=== PATIENT | male | born 1975 | race Caucasian/White ===

== ENCOUNTER 2016-12-16 17:08 | Emergency (ER) | payer BC ==
--- NOTE | ~2016-12-16 | CR101 ---
[facility]. [facility] A Service of [facility] & [facility] RADIOLOGY TEXT RESULTS PATIENT: TOÑITO ZHU LOCATION: SED : [birth year] UNIT #: [id number] AGE: [address]: CEE LOPEZ PA-C SEX: M ORDER DR: [id number] [place] [address] [id number] E MR#: [id number] Acc #: [id number] NAME: TOÑITO ZHU. : 1975 SEX: M STUDY DATE/TIME: 12/16/2016 17:35 UNIT: SED ROOM: STUDY DESCRIPTION: CR Facial Bones Min 3 Views Attending Physician: Cee Lopez Pa-C Ordering Physician: Staff Doctor Not On Primary Care Physician: Milton Mtz M.D. MEDICAL IMAGING REPORT This report is preliminary unless electronic signature is present. EXAM Facial series, 12/16/16. HISTORY 41-year-old male in the ED after head injury. Fell from ladder, striking face about 1 hour prior to arrival. Laceration under right eye. TECHNIQUE Three-view facial series was obtained. FINDINGS No facial fracture is visible radiographically. The paranasal sinuses appear clear. IMPRESSION Negative facial series. Dictated by... Jaime Barrientos M.D. THIS IS AN ELECTRONICALLY VERIFIED REPORT Jaime Barrientos M.D. at 12/20/2016 10:33 AM WALDEMAR/cristóbal TD: 12/16/2016 22:55 JOB #: [id number] MEDICAL IMAGING REPORT Page 1 of 1
[~2016-12-16 17:08] MED LIST: NORCO 5/325 TAB1 TAB PO; PHENERGAN SUPP25 M1 PR; PHENERGAN25 M1 DOB; ULTRAM
[2016-12-16] MEDS ORDERED: PLAQUENIL200 MG (17:18)
[2016-12-16] MEDS ORDERED: NEURONTIN (17:18)
== END 2016-12-16 18:34 | disposition home or self-care (01) ==
LOC: SED 17:08
DX: S01.81XA Laceration without foreign body of other part of head, initial encounter (principal); I10 Essential (primary) hypertension; Z79.899 Other long term (current) drug therapy; W11.XXXA Fall on and from ladder, initial encounter; Y92.009 Unspecified place in unspecified non-institutional (private) residence as the place of occurrence of the external cause; Z23 Encounter for immunization
CPT/HCPCS: 12011; 70150; 90471; 90715; 96372; 99283; J1885

== ENCOUNTER → 2017-03-13 | Outpatient (CLI) | payer BC ==
[~2017-03-13] MED LIST changes: +NEURONTIN; +PLAQUENIL200 MG
--- NOTE | ~2017-03-13 | CR127 ---
[facility]. [facility] A Service of [facility] & [facility] RADIOLOGY TEXT RESULTS PATIENT: TOÑITO ZHU LOCATION: [facility] : [birth year] UNIT #: [id number] AGE: [address]: January Rodriguez MD SEX: M ORDER DR: [id number] [address] [address] [id number] O MR#: [id number] Acc #: [id number] NAME: TOÑITO ZHU. : 1975 SEX: M STUDY DATE/TIME: 03/13/2017 13:04 UNIT: [facility] ROOM: STUDY DESCRIPTION: CR Foot Complete Min 3 View Rt Attending Physician: January Rodriguez M.D. Referring Physician: January Rodriguez M.D. Ordering Physician: January Rodriguez M.D. Primary Care Physician: Milton Mtz M.D. MEDICAL IMAGING REPORT This report is preliminary unless electronic signature is present. EXAM Right foot 3 views HISTORY Bilateral hand and foot pain for 3 months. Clinical concern for gout. FINDINGS Three views of the right foot demonstrates no fracture or dislocation. There is bipartite tibial and fibular hallux sesamoids. No erosions identified. Joint spaces maintained. Bone mineralization appears normal. Soft tissues unremarkable. IMPRESSION Apparent bipartite tibial and fibular hallux sesamoids. No acute abnormality identified. No focal arthropathy seen. Dictated by... Mercy Fontenot M.D. THIS IS AN ELECTRONICALLY VERIFIED REPORT Mercy Fontenot M.D. at 03/14/2017 5:08 PM TYLER/gisela TD: 03/14/2017 12:22 JOB #: [id number] MEDICAL IMAGING REPORT Page 1 of 1
--- NOTE | ~2017-03-13 | CR142 ---
[facility]. [facility] A Service of [facility] & [facility] RADIOLOGY TEXT RESULTS PATIENT: TOÑITO ZHU LOCATION: [facility] : [birth year] UNIT #: [id number] AGE: [address]: January Rodriguez MD SEX: M ORDER DR: [id number] [address] [address] [id number] O MR#: [id number] Acc #: [id number] NAME: TOÑITO ZHU. : 1975 SEX: M STUDY DATE/TIME: 03/13/2017 13:04 UNIT: [facility] ROOM: STUDY DESCRIPTION: CR Hand Min 3 Views Rt Attending Physician: January Rodriguez M.D. Referring Physician: January Rodriguez M.D. Ordering Physician: January Rodriguez M.D. Primary Care Physician: Milton Mtz M.D. MEDICAL IMAGING REPORT This report is preliminary unless electronic signature is present. EXAM Right hand 3 views HISTORY Bilateral hand and foot pain, possible gout. Symptoms for 3 months. FINDINGS Three views of the right hand demonstrates mild arthritic changes at the first MCP joint with mild joint space narrowing and sclerosis. No erosions. Minimal degenerative changes distal radioulnar joint. Bone mineralization appears normal. Soft tissues unremarkable. IMPRESSION Mild arthritic changes first MCP joint and also distal radioulnar joint. Pattern most suggestive of osteoarthritis. No findings to suggest a crystalline arthropathy such as gout. Dictated by... Mercy Fontenot M.D. THIS IS AN ELECTRONICALLY VERIFIED REPORT Mercy Fontenot M.D. at 03/14/2017 5:08 PM TYLER/gisela TD: 03/14/2017 12:20 JOB #: [id number] MEDICAL IMAGING REPORT Page 1 of 1
--- NOTE | ~2017-03-13 | CR126 ---
[facility]. [facility] A Service of [facility] & [facility] RADIOLOGY TEXT RESULTS PATIENT: TOÑITO ZHU LOCATION: [facility] : [birth year] UNIT #: [id number] AGE: [address]: January Rodriguez MD SEX: M ORDER DR: [id number] [address] [address] [id number] O MR#: [id number] Acc #: [id number] NAME: TOÑITO ZHU. : 1975 SEX: M STUDY DATE/TIME: 03/13/2017 12:49 UNIT: [facility] ROOM: STUDY DESCRIPTION: CR Foot Complete Min 3 View Lt Attending Physician: January Rodriguez M.D. Referring Physician: January Rodriguez M.D. Ordering Physician: January Rodriguez M.D. Primary Care Physician: Milton Mtz M.D. MEDICAL IMAGING REPORT This report is preliminary unless electronic signature is present. EXAM Three views of the left foot 03/13/2017 HISTORY 41-year-old male with bilateral foot pain. Possible gout. Symptoms have been present for 3 months. COMPARISON None. FINDINGS No significant osteoarthritic changes are identified. Joint spaces appear well maintained. No marginal osteophyte formation, subchondral cystic change or marginal erosions. No overlying soft tissue swelling. No retained radiopaque foreign body. No acute osseous abnormality. IMPRESSION Normal 3 views of the left foot. Dictated by... Elda Villegas M.D. THIS IS AN ELECTRONICALLY VERIFIED REPORT Elda Villegas M.D. at 03/14/2017 5:04 PM VALENTINA/gisela TD: 03/14/2017 11:04 JOB #: [id number] MEDICAL IMAGING REPORT Page 1 of 1
--- NOTE | ~2017-03-13 | CR141 ---
[facility]. [facility] A Service of [facility] & [facility] RADIOLOGY TEXT RESULTS PATIENT: TOÑITO ZHU LOCATION: [facility] : [birth year] UNIT #: [id number] AGE: [address]: January Rodriguez MD SEX: M ORDER DR: [id number] [address] [address] [id number] O MR#: [id number] Acc #: [id number] NAME: TOÑITO ZHU. : 1975 SEX: M STUDY DATE/TIME: 03/13/2017 13:04 UNIT: [facility] ROOM: STUDY DESCRIPTION: CR Hand Min 3 Views Lt Attending Physician: January Rodriguez M.D. Referring Physician: January Rodriguez M.D. Ordering Physician: January Rodriguez M.D. Primary Care Physician: Milton Mtz M.D. MEDICAL IMAGING REPORT This report is preliminary unless electronic signature is present. EXAM Left hand 3 views HISTORY Bilateral hand and foot pain for 3 months. Clinical concern for gout. FINDINGS Three views of the left hand demonstrates multifocal arthritic changes most prominent at the first and second MCP joints. Small amount of subchondral cystic changes noted particularly at the first MCP joint. Questionable small erosion or cyst second MCP joint. No significant joint space narrowing. No periarticular calcifications. Mild arthritic change is seen at the scaphotrapezial joint and also within the distal radioulnar joint. No acute fracture or dislocation. Bone mineralization appears normal. IMPRESSION Mild multifocal arthritic changes most pronounced first and second MCP joints and scaphotrapezial joint. Pattern most suggestive of osteoarthritis. No findings strongly suggestive of gout. Dictated by... Mercy Fontenot M.D. THIS IS AN ELECTRONICALLY VERIFIED REPORT Mercy Fontenot M.D. at 03/14/2017 5:08 PM TYLER/gisela TD: 03/14/2017 12:17 JOB #: [id number] [facility] A Service of [facility] & [facility] RADIOLOGY TEXT RESULTS PATIENT: TOÑITO ZHU [id number] [birth year] UNIT #: [id number] AGE: [address]: January Rodriguez MD SEX: M ORDER DR: MEDICAL IMAGING REPORT Page 1 of 1
== END | disposition home or self-care (01) ==
LOC: SRAD 12:44
DX: M79.671 Pain in right foot (principal); M79.642 Pain in left hand; M79.641 Pain in right hand; M79.672 Pain in left foot; M19.042 Primary osteoarthritis, left hand; M19.041 Primary osteoarthritis, right hand; M19.032 Primary osteoarthritis, left wrist; M19.031 Primary osteoarthritis, right wrist
CPT/HCPCS: 73130; 73630